=== PATIENT | female | born 1930 | race Caucasian/White ===

== ENCOUNTER → 2018-08-07 | Outpatient (CLI) | payer MEDICARE, BC ==
[~2018-08-07] MED LIST: Barium Sulfate w/v 2.1% Oral Susp 450 ML Bottle PO ONE; Iopamidol 612 MG/ML 75 ML Bottle IV ONE; Iopamidol 612 MG/ML 75 ML Bottle IVPUSH ONE
--- NOTE | 2018-08-07 14:42 | CT ---
CLINICAL HISTORY: 88-year-old 150 pound female with unspecified abdominal pain (history breast cancer 1996). SCAN TECHNIQUE: Volume acquisition of data from the abdomen and pelvis obtained after oral ingestion 2 bottles of Redicat barium and during/after the intravenous infusion 75 cc nonionic Isovue contrast (3 cc/s via injector) while the patient was lying supine on the Siemens multislice scanner [place], [place]. All data archived in the PACS system for storage, reformatting axial/sagittal/coronal planes and study. INTERPRETATION: 1. Diseased gallbladder (dense small intraluminal calcifications dependent layering). *Abnormal dilatation CBD (12-14 mm). 2. Benign-appearing cysts scattered in the liver and both kidneys. Normal spleen and pancreas. Senescent uterus unremarkable. 3. Several diverticula sigmoid colon without associated signs of inflammation, i.e., diverticulosis. 4. No sign of pelvic or abdominal mass lesion, inflammatory "dirty" peritoneal fat, mesenteric or retroperitoneal lymphadenopathy, ascites or free intraperitoneal air. Normal appendix RLQ. Terminal ileum and proximal small bowel unremarkable. 5. Normal cardiac silhouette. Lung bases clear. Scoliosis osteopenia lumbar spine and chronic L2-3 disc disease. 6. Dense calcifications along the course of normal caliber abdominal aorta. No aneurysm or dissection. Right mastectomy. CONCLUSION: *Cholelithiasis and dilatation of the common bile duct. Sigmoid diverticulosis. Abnormalities lumbar spine and usual signs of senescence. No sign of primary or metastatic malignancy.
== END ==
LOC: DL.CT 09:15
PROVIDERS: ATTEND Internal Medicine Gastroenterology
DX: R10.9 Unspecified abdominal pain (principal); K80.20 Calculus of gallbladder without cholecystitis without obstruction; K83.8 Other specified diseases of biliary tract; K57.30 Diverticulosis of large intestine without perforation or abscess without bleeding; R93.7 Abnormal findings on diagnostic imaging of other parts of musculoskeletal system
CPT/HCPCS: 74177; Q9967

== ENCOUNTER 2018-08-14 05:19 | Day surgery (SDC) | payer MEDICARE, BC ==
[2018-08-14] MEDS ORDERED: fentaNYL 100 MCG/2 ML SDV IV ONE (05:20)
[2018-08-14] MEDS ORDERED: Sodium Chloride 0.9% 10 ML Syringe FLUSH PRN (06:00)
[2018-08-14] MEDS: Dextrose 5%-0.45% NaCl 1,000 ML IV SCH (06:04)
[2018-08-14] MEDS ORDERED: fentaNYL 100 MCG/2 ML SDV ONE ×2 (06:06→06:41)
[2018-08-14] MEDS: fentaNYL 100 MCG/2 ML SDV IV ONE ×2 (06:45→06:46)
[2018-08-14 09:22] VITALS: BP 128/47
--- NOTE | 2018-08-14 11:36 | OR ---
DATE: 08/14/2018 PROCEDURE: Esophagogastroduodenoscopy and multiple pinch biopsies. INSTRUMENT USED: [id number] and Olympus panendoscope. PREMEDICATIONS: Fentanyl 100 mcg intravenous, nasal O2 cannula. The procedure was done under pulse oximetry, BP recording, and cardiac care nurse. INDICATION: The patient with persistent dyspepsia and upper abdominal pain, unexplained, but not responsive to medical measures, on acid suppressants. DESCRIPTION OF PROCEDURE: Esophagogastroduodenoscopy is performed for detection of any active erosive lesions, Wright esophagus and/or malignancy also under consideration, H. pylori status to be determined, endoscopic hemostasis therapy if needed. The scope was passed with ease. Adequate visualization of the esophagus was made from proximal to distal areas. No upper esophageal lesions identified. No distal esophageal stricture. No uphill or downhill esophageal varices. No Lina-Paul tear. No evidence of erosive esophagitis by [place] criteria. No esophageal polyp or tumor mass identified. Sliding hiatal hernia was noted. No proximal gastric varices noted. Gastric fundus examination by retroflexion showed no polypoid lesions. No gastric ulcer, malignant mass, or vascular ectasia identified. Duodenal bulb showed no ulcer. Visualized second part of the duodenum was unremarkable. Multiple pinch biopsies were taken from the gastric antrum and proximal body and sent for PyloriTek test for H. pylori, and if negative in an hour, the tissue is to be sent for histopathology. No bleeding was noted from any of the visualized areas at the completion of examination. Photographs were taken of the duodenal bulb, gastric antrum, fundus, and distal esophagus. IMPRESSION: Sliding hiatal hernia. The patient tolerated the procedure well. [facility] /[id number]
== END 2018-08-14 09:02 | disposition home or self-care (01) ==
LOC: DL.ENDO 05:19
PROVIDERS: ATTEND Internal Medicine Gastroenterology
DX: R10.13 Epigastric pain (principal); K44.9 Diaphragmatic hernia without obstruction or gangrene; I12.9 Hypertensive chronic kidney disease with stage 1 through stage 4 chronic kidney disease, or unspecified chronic kidney disease; N18.9 Chronic kidney disease, unspecified; E78.00 Pure hypercholesterolemia, unspecified; F41.1 Generalized anxiety disorder; R73.9 Hyperglycemia, unspecified; Z88.8 Allergy status to other drugs, medicaments and biological substances; Z79.82 Long term (current) use of aspirin; Z79.899 Other long term (current) drug therapy
CPT/HCPCS: 43239; 87077; J3010; J7042